=== PATIENT | male | born 1985 | race Caucasian/White ===

== ENCOUNTER 2019-10-27 04:13 | Emergency (ER) | payer BC ==
--- NOTE | 2019-10-27 05:02 | PDOC ---
History of Present Illness - General Chief Complaint: Laceration Stated Complaint: R ARM LAC Time Seen by Provider: 10/27/19 04:55 - History of Present Illness Initial Comments: 10/27/19 05:09 The patient is a 33 year old male with no significant PMH who presents for evaluation of a laceration to the right forearm. The patient reports that he sustained a laceration to the flexor surface of the right forearm after punching a glass door. The patient held pressure on the wound and presented to the ED for further evaluation. The patient denies any other injuries, headache , SOB, chest pain, nausea, vomiting, abdominal pain, numbness, tingling, or weakness. Past History - Past Medical History Allergies/Adverse Reactions: Allergies Allergy/AdvReac Type Severity Reaction Status Date / Time No Known Allergies Allergy Verified 10/27/19 05:03 Review of Systems - Review of Systems Comments:: 10/27/19 05:18 Constitutional: No fevers, chills, fatigue, malaise HEENT: No Rhinorrhea, nasal congestion, visual changes Cardiovascular: No chest pain, syncope, palpitations, lightheadedness Respiratory: No Cough, SOB, Hemoptysis, Gastrointestinal: No Abdominal pain, Nausea, Vomiting, Constipation, Diarrhea, Melena Genitourinary: No Dysuria, Frequency, Urgency, Hesitancy, Hematuria, Flank pain Musculoskeletal: No Myalgia, arthralgia Skin: Right forearm laceration. No rashes, itching, bruising, pallor Neurologic: No Headache, Dizziness, Numbness, Weakness, or Tingling Psychiatric: No Hallucinations. No SI or HI *Physical Exam - Physical Exam 10/27/19 05:19 General Appearance: Nourished. No Apparent Distress HEENT: No Pharyngeal Erythema, Tonsillar Exudate, Tonsillar Erythema Neck: No Cervical Lymphadenopathy Respiratory/Chest: Lungs Clear, Normal Breath Sounds. No Crackles, Rales, Rhonchi, Wheezing Cardiovascular: Regular Rhythm, Regular Rate. No Murmur, Gallops, Rubs Gastrointestinal/Abdominal: Normal Bowel Sounds, Soft. No Guarding, Rebound, Tenderness Musculoskeletal: No CVA Tenderness Extremity: 2cm deep laceration to the flexor surface of the right forearm with active bleeding. Full ROM of the right wrist and digits. Sensation to light touch and temperature intact distally. 2+ radial pulses distally. Normal Capillary Refill Integumentary: Normal Color, Dry, Warm Neurologic: Fully Oriented, Alert, Normal Mood/Affect, Normal Response, Procedures - Laceration/Wound Repair Right Arm Wound Length: to 2.5 cm Wound Explored: clean, no foreign body present Wound's Depth, Shape: superficial, into muscle, linear Irrigated w/ Saline: Yes Betadine Prep: Yes Anesthesia: 1% Lidocaine Amount of Anesthetic (ccs): 4 Wound Repaired With: Sutures Suture Size/Type: 3:0, nylon Number of Sutures: 4 Layer Closure: Yes Sterile Dressing Applied: Yes ED Treatment Course - RADIOLOGY Radiology Studies Ordered: Category Date Time Status FOREARM- RIGHT [RAD] Stat Radiology 10/27/19 04:55 Ordered Medical Decision Making - Medical Decision Making 10/27/19 05:22 The patient is a 33 year old male with no significant PMH who presents for evaluation of a laceration to the right forearm. Given the patient's history and physical exam, we will obtain a plain film to evaluate further. The patient 's laceration will require closure and we will update the patient's tetanus status. We will continue to monitor and reassess while here in the ED. 10/27/19 06:06 The patient's laceration was closed with 2 3-0 nylon sutures and 2 figure eight stitches. Plain film did not demonstrate any fracture or foreign body. We are comfortable discharging the patient home in stable condition. Patient made aware of impression and plan, return precautions discussed including but not limited to worsening pain or symptoms, fevers, or signs of infection, chest pain , respiratory distress, inability to tolerate oral intake, dehydration, syncope , or neurologic changes. The patient is to follow up with PMD as recommended within 1 week, follow up information provided and the patient will call for an appointment. The patient is to take medications as instructed for duration of time and continue with supportive care, avoid triggers and precipitants. Patient is safe for outpatient follow-up. Discharge - Discharge Information Problems reviewed: Yes Clinical Impression/Diagnosis: Laceration Condition: Stable Disposition: HOME - Admission No - Follow up/Referral - Patient Discharge Instructions Patient Printed Discharge Instructions: DI for Laceration Repair Additional Instructions: 1) Please follow-up with your primary care doctor in the next 2-3 days. Please call tomorrow to schedule a follow up appointment. If you cannot follow up with your doctor within 1 week please return to the Emergency Department for any urgent issues. 2) Your imaging results were normal here in the ER. 3) If you have any worsening of symptoms or any other concerns, please return to the ER immediately. Return if worsening symptoms including fevers, headache, vomiting, visual or hearing disturbances, abdominal pain, chest pain, shortness of breath, syncope, dehydration, inability to take things by mouth/vomiting, altered mental status, or worsening concerning symptoms. 4) Your sutures will need to be removed in 10 days. Please keep the wound clean and you may lightly cleanse the wound with soap and water without scrubbing. - Post Discharge Activity
[2019-10-27 05:04] VITALS: BP 145/100; PULSE 113; TEMP 98.1; BMI 28.0
[2019-10-27] MEDS ORDERED: DIPHTH,PERTUSS(ACELL),TET 0.5 ML DISP.SYRIN IM ONE ×3 (05:10→06:00)
--- NOTE | 2019-10-27 05:10 | PDOC ---
Attending Attestation - Resident Resident Name: Zain Deal - ED Attending Attestation I have performed the following: I have examined & evaluated the patient, The case was reviewed & discussed with the resident, I agree w/resident's findings & plan - HPI HPI: 10/27/19 05:07 see resident hpi - Physicial Exam PE: 10/27/19 05:09 agree with resident exam - Medical Decision Making 10/27/19 05:09 33-year-old male with a laceration to the right forearm, extensor surface after punching a glass window Patient is neurovascularly intact Plan for x-ray, tetanus and wound repair
== END 2019-10-27 06:00 | disposition home or self-care (01) ==
LOC: JER 04:13
PROC: 0HQDXZZ Repair Right Lower Arm Skin, External Approach (ICD-10-PCS; principal; 2019-10-27)
PROC: 3E0234Z Introduction of Serum, Toxoid and Vaccine into Muscle, Percutaneous Approach (ICD-10-PCS; 2019-10-27)
DX: S51.811A Laceration without foreign body of right forearm, initial encounter (principal); W22.01XA Walked into wall, initial encounter; Y93.89 Activity, other specified; Y92.89 Other specified places as the place of occurrence of the external cause
CPT/HCPCS: 73090-TC-RT-FY; 90715; 99282-25